=== PATIENT | female | born 1960 | race Caucasian/White ===

== ENCOUNTER → 2023-11-26 15:39 | Outpatient (REF) | payer BC, SELFPAY | LOC: RAD 15:39 | PROVIDERS: ATTENDING PHYSICIAN Nurse Practitioner Adult Health | DX: R05.3 Chronic cough (principal); R06.02 Shortness of breath | CPT/HCPCS: 71046 ==

== ENCOUNTER → 2023-12-28 06:37 | Outpatient (REF) | payer BC, SELFPAY ==
[2023-12-28 07:40] LABS: % Basophils 0.9 % (0-2); % Immature Granulocytes 0.5 % (0-0.5); % Lymphocytes 25.5 % (20.5-51.1); % Monocytes 6.3 % (1.7-9.3); % Neutrophils 64.8 % (42.2-75.2); Absolute Basophils 0.1 10^3/uL (0-0.2); Absolute Eosinophils 0.1 10^3/uL (0-0.7); Absolute Lymphocytes 1.7 10^3/uL (1.2-3.4); Absolute Monocytes 0.4 10^3/uL (0.1-0.6); Absolute Neutrophils 4.3 10^3/uL (1.4-6.5); Hematocrit 42.9 % (37.0-47.0); Hemoglobin 14.8 g/dL (12.0-16.0); Mean Corp Hgb Conc. 34.5 g/dL (33.0-37.0); Mean Corpuscular Volume 89.7 fL (81.0-99.0); Mean Platelet Volume 10.5 fL (7.4-10.4); Nucleated Red Blood Cells % 0 %; Platelet Count 223 10^3/uL (130-400); Red Blood Cell Count 4.78 10^6/uL (4.20-5.40); Red Cell Dist. Width 13.5 % (11.5-14.5); White Blood Cell Count 6.6 10^3/uL (4.8-10.8)
[2023-12-28 08:08] LABS: ALT (SGPT) 31 U/L (0-35); AST (SGOT) 26 U/L (14-36); Albumin 4.6 g/dl (3.5-5.0); Alkaline Phosphatase 89 U/L (38-126); Blood Urea Nitrogen 25 mg/dl (7-17); Calcium 9.6 mg/dl (8.4-10.2); Carbon Dioxide 25 mmol/L (22-30); Chloride 104 mmol/L (98-107); Glucose 105 mg/dl (70-99); HDL Cholesterol 50 mg/dl; LDL Cholesterol, Calculated 91 mg/dl; Potassium 4.6 mmol/L (3.5-5.1); Sodium 137 mmol/L (135-145); Total Bilirubin 0.5 mg/dl (0.2-1.3); Total Cholesterol 183 mg/dl (50-199); Total Protein 7.1 g/dl (6.3-8.2); Triglyceride 212 mg/dl (10-149); Very Low Density Lipoprotein 42 mg/dl (0-30); eGFR > 60.00
[2023-12-28 08:30] LABS: Microalbumin, Random Urine 1.1 mg/dl (0.6-1.7); Microalbumin/creatinine Ratio 7.3 mg/g
[2023-12-28 08:35] LABS: TSH Reflex To Free T4 1.15 uIU/ml (0.47-4.68)
[2023-12-28 09:26] LABS: Vitamin D, 25-OH*** 44.4 ng/mL (30-80)
[2023-12-28 09:38] LABS: Glycohemoglobin (HgbA1c) 5.7 % (4.0-5.6)
== END ==
LOC: REG 06:37
PROVIDERS: ATTENDING PHYSICIAN Nurse Practitioner Adult Health
DX: I10 Essential (primary) hypertension (principal); E78.2 Mixed hyperlipidemia; R73.01 Impaired fasting glucose; Z00.00 Encounter for general adult medical examination without abnormal findings; E55.9 Vitamin D deficiency, unspecified; E04.1 Nontoxic single thyroid nodule; K76.89 Other specified diseases of liver; E78.1 Pure hyperglyceridemia
CPT/HCPCS: 36415; 80053; 80061; 82043; 82306; 82570; 83036; 84443; 85025

== ENCOUNTER → 2024-03-14 08:52 | Outpatient (REF) | payer BC, SELFPAY | LOC: WDC 08:52 | PROVIDERS: ATTENDING PHYSICIAN Nurse Practitioner Adult Health | DX: Z12.31 Encounter for screening mammogram for malignant neoplasm of breast (principal) | CPT/HCPCS: 77063; 77067 ==

== ENCOUNTER → 2024-11-16 14:21 | Outpatient (REF) | payer MEDICARE, OTHER, SELFPAY | LOC: RCS 14:21 | PROVIDERS: ATTENDING PHYSICIAN Nurse Practitioner Adult Health | DX: R06.09 Other forms of dyspnea (principal) | CPT/HCPCS: 93306 ==

== ENCOUNTER → 2024-11-21 09:50 | Outpatient (REF) | payer MEDICARE, OTHER, SELFPAY | LOC: RCS 09:50 | PROVIDERS: ATTENDING PHYSICIAN Nurse Practitioner Adult Health | DX: R06.09 Other forms of dyspnea (principal) | CPT/HCPCS: 93017 ==

== ENCOUNTER → 2024-11-22 12:09 | Outpatient (REF) | payer MEDICARE, OTHER, SELFPAY ==
[2024-11-22 13:43] LABS: % Basophils 0.8 % (0-2); % Eosinophils 1.5 % (0-6); % Immature Granulocytes 1.2 % (0-0.5); % Lymphocytes 28.6 % (20.5-51.1); % Monocytes 8.6 % (1.7-9.3); % Neutrophils 59.3 % (42.2-75.2); Absolute Basophils 0.1 10^3/uL (0-0.2); Absolute Eosinophils 0.1 10^3/uL (0-0.7); Absolute Immature Granulocytes 0.1 10^3/uL (0-0.05); Absolute Lymphocytes 2.2 10^3/uL (1.2-3.4); Absolute Monocytes 0.7 10^3/uL (0.1-0.6); Absolute Neutrophils 4.6 10^3/uL (1.4-6.5); Hematocrit 37.9 % (37.0-47.0); Mean Corp Hgb Conc. 34.3 g/dL (33.0-37.0); Mean Corpuscular Hgb 31.3 pg (27.0-31.0); Mean Corpuscular Volume 91.1 fL (81.0-99.0); Nucleated Red Blood Cells % 0 %; Platelet Count 264 10^3/uL (130-400); Red Blood Cell Count 4.16 10^6/uL (4.20-5.40); Red Cell Dist. Width 14.3 % (11.5-14.5); White Blood Cell Count 7.8 10^3/uL (4.8-10.8)
[2024-11-22 14:15] LABS: ALT (SGPT) 117 U/L (0-35); AST (SGOT) 51 U/L (14-36); Albumin 4.4 g/dl (3.5-5.0); Alkaline Phosphatase 109 U/L (38-126); Blood Urea Nitrogen 22 mg/dl (7-17); Calcium 9.2 mg/dl (8.4-10.2); Carbon Dioxide 23 mmol/L (22-30); Chloride 110 mmol/L (98-107); Glucose 95 mg/dl (70-99); Potassium 4.2 mmol/L (3.5-5.1); Sodium 140 mmol/L (135-145); Total Bilirubin 0.6 mg/dl (0.2-1.3); Total Protein 6.9 g/dl (6.3-8.2); eGFR > 60.00
== END ==
LOC: REG 12:09
PROVIDERS: ATTENDING PHYSICIAN Nurse Practitioner Adult Health
DX: R60.0 Localized edema (principal); R06.02 Shortness of breath
CPT/HCPCS: 36415; 71046; 80053; 83880; 85025

== ENCOUNTER → 2024-11-24 12:38 | Outpatient (REF) | payer MEDICARE, OTHER, SELFPAY ==
[2024-11-24 14:13] LABS: D-Dimer 0.35 ug/mlFEU (0.00-0.50)
[2024-11-24 14:25] LABS: Erythrocyte Sed Rate 6 mm/hour (0-20)
[2024-11-24 15:15] LABS: C-Reactive Protein < 5.00 mg/L (0.0-10.00)
[2024-11-24 15:45] LABS: TSH Reflex To Free T4 0.87 uIU/ml (0.47-4.68)
[2024-11-27 02:29] LABS: ANA, IgG Reflex to HEp-2 None Detected (None Detected)
== END ==
LOC: RAD 12:38
PROVIDERS: ATTENDING PHYSICIAN Nurse Practitioner Adult Health
DX: R60.0 Localized edema (principal); R06.09 Other forms of dyspnea
CPT/HCPCS: 36415; 84443; 85379; 85652; 86038; 86140; 86618; 93970

== ENCOUNTER → 2024-12-05 13:56 | Outpatient (REF) | payer MEDICARE, OTHER, SELFPAY | LOC: HWRAD 13:56 | PROVIDERS: ATTENDING PHYSICIAN Nurse Practitioner Adult Health | DX: E78.2 Mixed hyperlipidemia (principal); I10 Essential (primary) hypertension | CPT/HCPCS: 75571 ==